=== PATIENT | male | born 1975 | race Caucasian/White ===

== ENCOUNTER 2016-09-12 14:27 | Observation (INO) | payer BC ==
[~2016-09-12] VITALS: Ht 170.2 cm; Wt 89.7 kg
--- NOTE | ~2016-09-12 | ER ---
PATIENT'S NAME: OLIVIA [facility] AGE: 89 Y [address] ROOM: [place] [address] LOCATION: [facility] ADMIT DATE: 09/12/2016 ER/Outpatient Report DISCHARGE DATE: FAMILY PHYSICIAN: PHYSICIAN, UNKNOWN ATTENDING PHYSICIAN: Mac Barnes Time of Arrival: 1438 hours. Time of Evaluation: 1438 hours. CHIEF COMPLAINT: Partial trauma. HISTORY OF PRESENT ILLNESS: The patient is a 41-year-old male who presents to the emergency department today with chief complaint of a partial trauma. The patient was a scene flight from [place]. He was brought in by helicopter. Apparently, the patient was riding a horse when it went head over heels and landed on the patient. The patient had brief loss of consciousness. He complains of left foot pain as well as a chest pain. He denies any shortness of breath. He does recall the incident. History is obtained from the patient as well as helicopter staff. Report was obtained. PAST MEDICAL HISTORY: Previous injury. PAST SURGICAL HISTORY: Left ankle, amputation of the right thumb. SOCIAL HISTORY: The patient is . ALLERGIES: NO KNOWN DRUG ALLERGIES. MEDICATIONS: None. REVIEW OF SYSTEMS: All systems are reviewed by myself and are negative with the exception of those discussed in the HPI and past medical history. PHYSICAL EXAMINATION: VITAL SIGNS: Temperature 97.8, pulse 77, respiratory rate 26, blood pressure 138/88, pulse ox 95. GENERAL: The patient is a 41-year-old male, well developed, well nourished, PATIENT'S NAME: OLIVIA [facility] AGE: 89 Y [address] ROOM: [address] [address] LOCATION: [facility] ADMIT DATE: 09/12/2016 ER/Outpatient Report DISCHARGE DATE: FAMILY PHYSICIAN: PHYSICIAN, UNKNOWN ATTENDING PHYSICIAN: Mac Barnes in moderate acute distress secondary to pain. HEENT: Head: Normocephalic. Does have evidence of trauma to the face with abrasions to the nose and left cheek and right forehead. Pupils are equal, round, and reactive to light and accommodation. Extraocular motions are intact. Nares are patent bilaterally. TMs are clear. No hemotympanum. No Restrepo sign. No raccoon eyes. NECK: Supple. Does have a cervical collar in place. When this was taken off to evaluate, the patient does have tenderness with range of motion. He has no tenderness to palpation. There are no step-offs or deformities. CARDIOVASCULAR: Regular rate and rhythm. No murmurs, rubs, or gallops. LUNGS: Clear to auscultation bilaterally. No wheezes, rales, or rhonchi. ABDOMEN: Soft, nontender, and nondistended. No rebound, rigidity, or guarding. MUSCULOSKELETAL: The patient does have tenderness to palpation anterior wall as well as the upper thoracic spine. He also has swelling to the left ankle and tenderness to palpation of the left foot. 2/4 pulses DP and PT, which are equal bilaterally. Equal pulses radially 2/4. SKIN: Warm and dry. The patient does have superficial abrasions to the face as described in the HEENT as well as abrasion to the left second toe. LABORATORY DATA AND X-RAYS: CBC is unremarkable except for white blood cell count 15.7. Coags are normal. CMP is normal. Alcohol is less than 0.01. CT scans are obtained. I have discussed results with the radiologist. CT scan of the head is negative. C- spine is negative. L-spine is negative. Abdomen and pelvis is negative. Chest does reveal left rib fractures 1, 2, 3, and 4; right rib fractures 1 and 2. There is a 3 cm right upper lobe contusion. There is subpleural hemorrhage. There is no pneumothorax. Thoracic spine shows T1, T2, T3, T4 and T5 compression fractures, which are mild. T4 is the worst. There is no significant swelling. IMPRESSION: 1. Horse accident. 2. Left ribs 1,2, 3, 4; right rib fracture 1 and 2. 3. Right upper lobe 3 cm contusion. 4. Subpleural hemorrhage. 5. Mild compression fracture at T1, T2, T3, T4, T5. 6. Acute closed left great toe distal phalanx fracture. 7. Second toe middle phalanx fracture. 8. Initial visit. EMERGENCY DEPARTMENT COURSE: The patient was brought back to the examination room. Seen and evaluated by myself. Report is obtained from helicopter staff. An IV had been established by them. The patient was given multiple aliquots of 5 mg of morphine for PATIENT'S NAME: TRAUMA, NICKY [facility] AGE: 89 Y [address] ROOM: [facility] [place] [address] LOCATION: [facility] ADMIT DATE: 09/12/2016 ER/Outpatient Report DISCHARGE DATE: FAMILY PHYSICIAN: PHYSICIAN, UNKNOWN ATTENDING PHYSICIAN: Mac Barnes. He underwent CT imaging as described above as well as laboratory analysis. The patient was a partial trauma activation. He does require multiple re-evaluations with the chest pain and multiple rib fractures. I did discuss the results of the testing with the patient and friends of him, who are at the bedside. Tetanus was updated. The patient did require critical care time of 32 minutes, this is cumulative time. This did include talking with family, talking with consultants, ordering tests, reviewing tests, as well as close monitoring of the patient with multiple rib fractures involved in a trauma activation. The patient was in the emergency department for greater than 2 hours. I did discuss the case with Dr. Barnes, who is on-call for Trauma Surgery. He does agree to accept the patient for further evaluation, treatment, and management. SHAHZAD Riojas with Dr. Barnes's service has seen and evaluated the patient down here in the emergency department. Please see their dictation. DO LAUREN JENKINS/modl /[id number] d: [id number]/12/[id number] t: 09/18/16 0914, OUTPATIENT REPORT
--- NOTE | ~2016-09-12 | HP ---
PATIENT'S NAME: OLIVIA [facility] AGE: 89 Y [address] ROOM: [place] [address] LOCATION: [facility] ADMIT DATE: 09/12/2016 History & Physical DISCHARGE DATE: FAMILY PHYSICIAN: PHYSICIAN, UNKNOWN ATTENDING PHYSICIAN: Mac Barnes DATE OF SERVICE: CHIEF COMPLAINT: Multi injury trauma. HISTORY OF PRESENT ILLNESS: Ranjith is a 41-year-old male, who was at a branding today. He was riding a horse and the horse slipped with the horse going head over heels. The patient fell to the ground hitting his head resulting in an approximate 5-minute loss of consciousness. This was witnessed by numerous people at the scene. The patient was transported to [facility] by helicopter. Initially, he did complain of some numbness and tingling in his hands, but that has resolved. At this time, he complains of some chest discomfort, back pain, and pain in his toes on the left foot. The patient denies headache or vision change. He states that his teeth are intact and he is swallowing okay. Denies any neck pain. Denies any shortness of breath at rest. Denies any abdominal pain, nausea, or vomiting. Again, denies any numbness or tingling into his hands. No pain in his hands or arms. No pain in his right leg. He has the pain in his left first and second toe, but no other pain in the left leg. PAST MEDICAL HISTORY: None. ALLERGIES: NONE. MEDICATIONS: None. ILLNESSES: None. 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 SOCIAL HISTORY: The patient is and lives in [place], [place]. He is a nonsmoker. He chews approximately one can of tobacco per day. He consumes alcohol occasionally and admits to drinking 4 to 5 beers on any given night, although PATIENT'S NAME: OLIVIA [facility] AGE: 89 Y [address] ROOM: [address] [address] LOCATION: [facility] ADMIT DATE: 09/12/2016 History & Physical DISCHARGE DATE: FAMILY PHYSICIAN: PHYSICIAN, UNKNOWN ATTENDING PHYSICIAN: O'Hare,Mac J family at bedside kind of chuckle like this was probably more. FAMILY HISTORY: No significant family history of heart disease or cancer. REVIEW OF SYSTEMS: The patient denies any changes in his appetite recently. He has not been seen by a physician for any specific concerns at this time. Denies any history of shortness of breath or chest pain. Denies any recent abdominal pain or change of bowel habits. He has been voiding fine. PHYSICAL EXAMINATION: VITAL SIGNS: Initially it was 138/88, heart rate 77, temperature 97.8. GENERAL: A 41-year-old male who is resting supine in bed with a cervical collar in place. He is alert and oriented, pleasant, cooperative, in good spirits. HEENT: He does have mild abrasion over the right frontal area. Pupils are equally round and reactive to light. Teeth appear to be intact. Cervical collar is in place. CHEST: Tender to palpation over the left upper ribs. No subcutaneous emphysema is noted. LUNGS: Clear and equal bilaterally. HEART: Regular rate and rhythm. ABDOMEN: Mildly distended, but nontender. Bowel sounds present. EXTREMITIES: Right hand, he had prior thumb amputation. He has good international travel consultant strength. Again, he denies any numbness or tingling at this time. He is able to move the right arm without difficulty with no pain over the humerus or radius ulnar. Left hand, the patient has good international travel consultant strength. Again, no tenderness to palpation over the upper or lower arm. The patient is able to move the left arm without difficulty. Right lower extremity shows no deformity. He has good flexion and extension of the foot. Sensation is grossly intact. Left foot has some swelling of the first and second toe. He also had some swelling of the left ankle, although nontender. No tenderness of the upper or lower legs. The back was previously evaluated by Dr. Beard with no specific abnormality noted. IMAGING: Evaluation included CT of the head that was negative. CT of the cervical spine that was negative. CT of the thoracic spine showed a T1-T5 mild compression fractures. CT of the lumbar spine was negative. CT of the chest showed left rib fractures 1, 2, 3, and 4. Right rib fractures, 1 and 2. Right upper lung contusion, subpleural hemorrhage. Left ankle x-ray showed no obvious fracture. Left foot x-ray showed first toe fracture at the distal phalanx and second toe fracture at the middle phalanx. PATIENT'S NAME: TRAUMA, NICKY [facility] AGE: 89 Y [address] [place] [facility] [place] [address] LOCATION: [facility] ADMIT DATE: 09/12/2016 History & Physical DISCHARGE DATE: FAMILY PHYSICIAN: PHYSICIAN, UNKNOWN ATTENDING PHYSICIAN: Mac Barnes LABORATORY WORK: White blood cell count 15.7, hemoglobin 15.2, hematocrit 44.0, platelets 279. Sodium 141, potassium 4.2, chloride 109, CO2 of 26, BUN 13, creatinine 1.1, glucose 116. ProTime 10.0, PTT 23, INR 0.95. Alcohol less than 0.010. ASSESSMENT: 1. A 41-year-old male with fall off a horse, hitting the ground, causing approximate 5-minute loss of consciousness. 2. Multiple left rib fractures including 1, 2, 3, and 4. 3. Multiple right rib fractures including 1 and 2. 4. Right upper lung contusion. 5. Subpleural hemorrhage. 6. T1-T5 mild compression fractures. 7. Left great toe distal phalanx fracture. 8. Left second toe middle phalanx fracture. PLAN: The patient will be admitted to the Neuro Trauma Unit for observation under the care of Dr. Barnes. I had put a call into Dr. Chavez for spine consultation and waiting to hear back from him. I discussed with the patient that the rib fractures typically do not require any surgical intervention, but rather just pain control. It is important to continue pulmonary toiletry with deep breathing, coughing, etc. We will allow diet as tolerated. We will keep at bed rest until Dr. Chavez evaluates the patient and makes recommendations. Depending on Dr. Chavez's plan, I would anticipate the patient will be able to go home in the next day or two with ongoing pain control at home. Dr. Barnes will be seeing the patient momentarily and is involved in the assessment and plan and is available for supervision. CARISSA VALIENTE PA-C FOR MD PREETHI FERRARI/gucci /[id number] D: 300 T: 043 HISTORY & PHYSICAL
--- NOTE | ~2016-09-12 | CON ---
PATIENT'S NAME: OLIVIA, [facility] AGE: 89 Y [address] ROOM: [id number] [place], [place] [address] LOCATION: [facility] ADMIT DATE: 09/12/2016 Consultation DISCHARGE DATE: FAMILY PHYSICIAN: PHYSICIAN, UNKNOWN ATTENDING PHYSICIAN: Mac Barnes REFERRING PHYSICIAN: Mohsen Albright MD HISTORY OF PRESENT ILLNESS: This 41-year-old male was admitted through the emergency room. He was apparently bucked off a horse and he rolled over landing on his head. There was a history of transient loss of consciousness; and by the time he got to the hospital, he was awake, he was alert, he was complaining of more pain in his anterior chest wall as well as the base of the neck. He denies any nausea and he has not had any vomiting. He denies any tingling, numbness, or weakness in the upper or lower extremities. Investigations carried out included a CT scan of the brain, which was normal. CT scan of the cervical spine did not show any fractures. CT scan of the thoracic spine shows minimal compression fractures at T1, T2, T3, T5, and a more significant compression fracture at T4. There was no malalignment of the vertebral bodies and there was no fracture elsewhere. He had a CT scan of the lumbar spine, which there was no fracture. A CT scan of the pelvis was negative for recent fracture and there was an old fracture of the pubis. CT scan of the cervical spine was normal. CT scan of the chest showed a right upper lobe contusion and showed anterior fracture of the 1st and 2nd ribs on the right as well as posterior fracture of the 1st 4 ribs on the left. 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 ALLERGIES: NO KNOWN ALLERGIES TO MEDICATION. MEDICATIONS: He is not any medication presently prior to coming to the hospital. FAMILY HISTORY: No significant medical problems in the family. SOCIAL HISTORY: He does not smoke, but he chews a half-a-can of tobacco per day, and drinks about 3-4 beers per week. REVIEW OF SYSTEMS: He denies any headache. He has some pain at the base of his neck. He also was complaining of anterior chest wall pain. No abdominal pain. No weakness PATIENT'S NAME: TRAUMA, NICKY [facility] AGE: 89 Y [address] ROOM: [place] [address] LOCATION: [facility] ADMIT DATE: 09/12/2016 Consultation DISCHARGE DATE: FAMILY PHYSICIAN: PHYSICIAN, UNKNOWN ATTENDING PHYSICIAN: Mac Barnes in the upper or lower extremities. Denies any nausea or vomiting or any urge to vomit. PHYSICAL EXAMINATION: VITAL SIGNS: In the hospital, this is a 41-year-old male, who is 5 feet, 7 inches tall, 92.4 pounds in weight. His blood pressure was 154/97, the pulse was 89 and regular, respirations 18, temperature is 98.2, and his O2 sats 94%. HEENT: He has got an abrasion in the right frontal region. He was awake, he is alert. [place] Score was 15. Pupils are equal. NECK: There was minimal tenderness at the base of the neck about between C7- T1. CHEST: Clear. HEART: Rate was regular. ABDOMEN: Soft. No area of tenderness. Bowel sounds were normal. NEUROLOGICAL: Cranial nerve examination was normal. The motor examination was normal. Sensory exam was normal. Reflexes were normal. Toes were downgoing. EXTREMITIES: He has got bluish discoloration of the toes in the left foot. BACK: I could not do a back exam as clearly he had extreme difficulty turning, so see Dr. Barnes's note. IMPRESSION: 1. Cerebral concussion. 2. Multiple rib fractures. 3. Compression fracture, T1-T5 superior endplates. MD RANDY BLEVINS/gucci /[id number] d: 09/13/162 t: 09/23/16 1610, CONSULTATION REPORT
[2016-09-12 14:51] LABS: BASOPHIL # 0.1 K/uL (0.0-0.2); BASOPHIL % 0.3 %; EOSINOPHIL % 0.3 %; IMMATURE GRANULOCYTE # 0.1 K/uL (0.0-0.3); IMMATURE GRANULOCYTE % 0.4 %; LYMPHOCYTE # 0.8 K/uL (0.8-4.0); LYMPHOCYTE % 5.4 %; MCH 30.9 pg (27.0-34.0); MCHC 34.1 gm/dL (32.0-36.5); MCV 90.7 fl (83.0-98.0); MONOCYTE # 1.1 K/uL (0.0-1.0); MONOCYTE % 7.1 %; MPV 8.9 fl (9.4-12.4); NEUTROPHIL # (ANC) 13.6 K/uL (1.4-9.0); NEUTROPHIL % 86.5 %; NRBC % 0 /100WBC (0-0.00); PLATELET COUNT 279 K/uL (150-450); RBC 4.85 M/uL (3.50-5.50); RDW-CV 13.1 % (11.9-14.6); WBC 15.7 K/uL (4.0-11.0)
[2016-09-12 15:04] LABS: INR - (THERAPEUTIC) 0.95 (0.92-1.07); PTT 23 SECONDS (25-32)
[2016-09-12 15:05] LABS: ANION GAP 10.2 (10.0-19.0); BLOOD UREA NITROGEN 13 mg/dL (6-24); CALCIUM 8.6 mg/dL (8.5-10.5); CHLORIDE 109 mMol/L (96-110); CO2 26 mMol/L (22-32); CREATININE 1.1 mg/dL (0.6-1.3); ESTIMATED GFR (MDRD EQUATION) 60; POTASSIUM 4.2 mMol/L (3.7-5.1); SODIUM 141 mMol/L (135-145)
[2016-09-12 15:10] LABS: PHOSPHORUS 1.9 mg/dL (2.5-4.9)
[2016-09-12 17:15] LABS: BILIRUBIN URINE NEGATIVE (NEGATIVE); BLOOD URINE 50 /UL (NEGATIVE); COLOR URINE YELLOW (YELLOW); GLUCOSE URINE NEGATIVE (NEGATIVE); KETONE URINE 5 mg/dL (NEGATIVE); LEUKOCYTES URINE NEGATIVE /UL (NEGATIVE); NITRITE URINE NEGATIVE (NEGATIVE); PROTEIN URINE 15 mg/dL (NEGATIVE); SPEC GRAVITY URINE 1.015 (1.003-1.035); TURBIDITY URINE CLEAR (CLEAR); UROBILINOGEN URINE NORMAL (NORMAL)
[2016-09-12 17:27] LABS: BACTERIA URINE RARE (NEGATIVE); MUCUS URINE 1+ (NEGATIVE); RBC URINE 0-2 #/HPF (NEGATIVE); WBC URINE 0-2 #/HPF (NEGATIVE)
--- NOTE | 2016-09-12 18:14 | NUR ---
PATIENT IS 41 YO MALE ADMITTED FROM ER A PARTIAL TRAUMA CODE. PATIENT WAS BROUGHT TO THE ER BY AIR CARE FROM THE SEEN. 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 [place] ADDRESS IS [place], [place]. HE STATES HIS HORSE WAS "AT FULL SPEED", THE HORSE APPARENTLY SLIPPED AND WENT HEAD FIRST IN A SOMERSAULT FASHION WITH THIS PATIENT ENDING UP UNDER THE HORSE IT ROLLED OVER HIM. HE DID APPARENTLY HAVE ABOUT A 5 MINUTE LOSS OF CONSCIOUSNESS. HE DOES APPARENTLY HAVE THORACIC VERTEBRAE FRACTURES AND RIB FRACTURES. DOES HAVE ABRASIONS ON RIGHT SHOULDER, HEAD AND LEFT TOE, WHICH IS ALSO BRUISED W/SOME EDEMA NOTED. SALINE LOCK IS NOTED IN RIGHT DORSAL HAND WITHOUT ERYTHEMA OR EDEMA NOTED AT SITE. PNEUMATICS ARE ON BILAT CALVES. EDUCATION IS GIVEN DOCUMENTED. PATIENT AND DENY QUESTIONS. FALL BRACELET IS ON. CALL LIGHT IS WITHIN REACH. PATIENT DENIES NEEDS AT THIS TIME. REPORT IS GIVEN TO TEGAN GARNETT.
--- NOTE | 2016-09-12 19:19 | NUR ---
Significant Event: NEW ADMIT TO NTU. A/O X 3. PAIN FROM RIB FXS. PRN MORPHINE FOR PAIN MANAGEMENT. DENIES NUMBNES/TINGLING OR DULLNESS OF SENSATION. MOVES ALL EXTREMITIES ON COMMAND AND SPONTANEOUSLY WITH EQUAL STRENGTH THROUGHOUT. DR. SHIRLEY REMOVED HARD COLLAR. PATIENT IS LYING FLAT IN BED. IV TO RIGHT FOREARM. LUNG SOUNDS CLEAR. BOWEL SOUNDS ACTIVE. PEDAL PULSES PALPABLE. SWELLING TO LEFT ANKLE FROM FX- ICE ON ANKLE. SKIN-ABRASION TO FOREHEAD, ABRASION TO LEFT CHEEK, ABRASION TO LEFT POSTERIOR SHOULDER AND SKIN TEAR TO LEFT FOOT SECOND TOE. DR. SHIRLEY ADMITTED AND DR. WHARTON CONSULTED.
--- NOTE | 2016-09-13 03:37 | NUR ---
Significant Event:PATIENT A/OX3. DENIES NUMBNESS AND TINGLING. MOVES ALL EXTREMITIES SPONTANEOUSLY AND TO COMMAND. MODERATE, EQUAL STRENGTH. PAIN TO LEFT ANKLE WITH MOVEMENT. LEFT ANKLE SWOLLEN. SCATTERED ABRASIONS. SLIGHT HYPERTENSIVE SBPS 130S-140S. VSS ON ROOM AIR. NEOSPORIN TO ABRASIONS ON FOREHEAD BID. IV TO RIGHT HAND RUNNING NORMAL SALINE AT 100ML/HR. BEDREST TONIGHT. ACTIVITY TOLERATED IN AM. PAIN TO RIBS 6-9/10. MORPHINE 4MG GIVEN X3 LAST GIVEN AT 0350. PERCOCET X2 LAST GIVEN AT 0058. LUNGS CLEAR AND DIMINISHED. ICE TO LEFT ANKLE THIS SHIFT. STRONG PULSES THROUGHOUT. REGULAR DIET. Follow up:
[2016-09-13 04:36] LABS: BASOPHIL % 0.4 %; EOSINOPHIL # 0.1 K/uL (0.0-0.5); EOSINOPHIL % 0.8 %; HEMATOCRIT 37.6 % (33.0-50.0); HEMOGLOBIN 12.8 g/dL (11.0-16.0); IMMATURE GRANULOCYTE % 0.4 %; LYMPHOCYTE # 1.4 K/uL (0.8-4.0); LYMPHOCYTE % 15.9 %; MCH 30.8 pg (27.0-34.0); MCV 90.6 fl (83.0-98.0); MONOCYTE # 1.2 K/uL (0.0-1.0); MONOCYTE % 14.6 %; MPV 8.8 fl (9.4-12.4); NEUTROPHIL # (ANC) 5.8 K/uL (1.4-9.0); NEUTROPHIL % 67.9 %; NRBC % 0 /100WBC (0-0.00); PLATELET COUNT 248 K/uL (150-450); RBC 4.15 M/uL (3.50-5.50); RDW-CV 13.2 % (11.9-14.6); WBC 8.5 K/uL (4.0-11.0)
[2016-09-13 04:52] LABS: ALBUMIN 3.3 gm/dL (3.5-5.0); ANION GAP 13.8 (10.0-19.0); BLOOD UREA NITROGEN 12 mg/dL (6-24); CALCIUM 7.9 mg/dL (8.5-10.5); CHLORIDE 107 mMol/L (96-110); CO2 24 mMol/L (22-32); ESTIMATED GFR (MDRD EQUATION) > 60; PHOSPHORUS 3.3 mg/dL (2.5-4.9); POTASSIUM 3.8 mMol/L (3.7-5.1); SODIUM 141 mMol/L (135-145)
--- NOTE | 2016-09-13 13:34 | NUR ---
Introduced self and CM role to Ranjith. He tells me that he lives in [place], [place] with this and it is his goal to return there when he is medically stable to do so. He tells me that doctors have indicated to him that he should be getting out tomorrow as long as everything looks ok. He has no concerns about going home and getting around. He does his own medications at home, although he tells me that he isn't really on any to speak of. He doesn't have a primary care doctor that he sees' on a regular basis. Reports that he just goes to the doctor when needed and he is usually seen by a doctor at the [facility]. He couldn't tell me the name of the last doctor or PA that he saw when he went there. States that if he has a follow up appointment he will talk with his and see who she thinks would be best for him to go and see and then let nursing know at the time of dismissal. HE does have insurance, he reports it being [employer]. Admissions did come around and get a copy of his cards for our records. No other questions needs or concerns. CM to continue to follow and assist. Plan home in the next 1-2 days.
--- NOTE | 2016-09-13 19:39 | NUR ---
Significant Event: PT ALERT AND ORIENTED X3. CSM INTACT. TRANSERS WITH STAND-BY ASSIST. VOIDS PER BATHROOM. NO BM THIS SHIFT. CAM BOOT TO L)FOOT. IV TO R)HAND SALINE LOCKED. REGULAR DIET; GOOD APPETITE. PRN PERCOCET AND IV MORPHINE HAVE BEEN HELPING WITH PT'S PAIN TO RIBS. PT HAS BEEN UP IN THE CHAIR MOST OF THE SHIFT. FAMILY HAS BEEN AT BEDSIDE ALL SHIFT. Follow up: PLAN TO DISCHARGE HOME TOMORROW IF PAIN IS CONTROLLED
--- NOTE | 2016-09-14 06:38 | NUR ---
Significant Event: A/Ox3. Ambulates SBA with CAM boot to LLE. Takes Percocet for pain approximately q4h. Skin abrasion to forehead with neosporin BID. IV to R)hand saline locked. Denies numbness and tingling and moves all extremities. Follow up: To home today with family
[2016-09-14] MEDS ORDERED: COLACE100 MG PO (09:17)
[2016-09-14] MEDS ORDERED: NEOSPORIN1 PKT TOP (09:18)
[2016-09-14] MEDS ORDERED: MOTRIN600 MG PO (09:19)
[2016-09-14] MEDS ORDERED: PERCOCET 5-3251 EACH PO (09:20)
--- NOTE | 2016-09-14 10:01 | NUR ---
Significant Event: Patient A/O X3. Denies N/T and headache. Follows commands and moves all extremities spontaneously. VSS. Room air with sats in the mid 90s. LS clear and diminished.Voids per toilet. BS actie X4. Abrasions to head and right shoulder. Neosporin applied. R) hand PIV SLL and D/Cd prior to dscharge. CAM boot on when ambulating. Stand by assist. Percocet given for pain. Relief noted. at bedside. Discharge and medication education presented to patient and . Patient and stated understanding. Discharged at 1000 via private auto with. Follow up:
== END 2016-09-14 10:00 | disposition disaster alternative care site (69) ==
LOC: GACC 14:27 → EDBD 15:44 → GNTU 15:44
PROVIDERS: Emergency Medicine; Physician Assistant; ADMIT Surgery
DX: S22.43XA Multiple fractures of ribs, bilateral, initial encounter for closed fracture (principal); S06.0X1A Concussion with loss of consciousness of 30 minutes or less, initial encounter; S27.321A Contusion of lung, unilateral, initial encounter; R04.89 Hemorrhage from other sites in respiratory passages; S92.425A Nondisplaced fracture of distal phalanx of left great toe, initial encounter for closed fracture; S92.525A Nondisplaced fracture of middle phalanx of left lesser toe(s), initial encounter for closed fracture; S22.010A Wedge compression fracture of first thoracic vertebra, initial encounter for closed fracture; S22.020A Wedge compression fracture of second thoracic vertebra, initial encounter for closed fracture; S22.030A Wedge compression fracture of third thoracic vertebra, initial encounter for closed fracture; S22.040A Wedge compression fracture of fourth thoracic vertebra, initial encounter for closed fracture; S22.050A Wedge compression fracture of T5-T6 vertebra, initial encounter for closed fracture; F17.220 Nicotine dependence, chewing tobacco, uncomplicated; Z98.890 Other specified postprocedural states; V80.010A Animal-rider injured by fall from or being thrown from horse in noncollision accident, initial encounter; Y93.52 Activity, horseback riding; S00.31XA Abrasion of nose, initial encounter; S00.81XA Abrasion of other part of head, initial encounter
CPT/HCPCS: G0378; G0480; J2270; J7030; Q9967